=== PATIENT | female | born 1995 | race American Indian/Alaskan Native ===

== ENCOUNTER 2016-10-29 22:40 | Inpatient (IN) | payer MEDICAID ==
[2016-10-29] MEDS ORDERED: POLYCILLIN/NS 2 GM/100 ML 2 GM/100 ML BAG IV ONE (23:03)
[2016-10-29] MEDS ORDERED: LACTATED RINGERS 1,000 ML ONE (23:04)
[2016-10-29] MEDS ORDERED: PITOCin/NS 30 UNIT/500ML 30 UNITS/500 ML BAG IV SCH (23:45)
[2016-10-29] MEDS ORDERED: LACTATED RINGERS 1,000 ML IV SCH ×2 (23:45)
[2016-10-29] MEDS ORDERED: PITOCin/NS 20 UNIT/1000ML DRIP 20 UNITS/1,000 ML BAG IV SCH (23:45)
[2016-10-29 23:46] LABS: Basophils % (Auto) 0.5 % (0.0-1.8); Eosinophils % (Auto) 1.1 % (0.0-4.3); Hematocrit 33.1 % (30.3-42.9); Hemoglobin 10.6 gm/dl (10.1-14.3); Mean Corpuscular HGB Conc 32 % (30-34); Mean Corpuscular Hemoglobin 26 pg (28-32); Mean Corpuscular Volume 82 fl (79-97); Platelet Count 291 K/mm3 (140-440); Red Blood Count 4.02 M/mm3 (3.65-5.03); Red Cell Distribution Width 16.1 % (13.2-15.2); White Blood Count 11.8 K/mm3 (4.5-11.0)
[2016-10-29] MEDS ORDERED: SUBLIMAZE IV PRN (23:59)
[2016-10-29] MEDS ORDERED: ZOFRAN IV PRN (23:59)
[2016-10-29] MEDS ORDERED: BRETHINE SUB-Q PRN (23:59)
[2016-10-29] MEDS ORDERED: ePHEDrine SULFATE IV PRN (23:59)
[2016-10-29] MEDS ORDERED: MINERAL OIL PO PRN (23:59)
[2016-10-29] MEDS ORDERED: XYLOCAINE 2% INFILTRATI ONE (23:59)
[2016-10-30] MEDS ORDERED: BICITRA ONE (00:01)
[2016-10-30] MEDS ORDERED: REGLAN ONE (00:01)
[2016-10-30] MEDS ORDERED: PEPCID IV ONE ×2 (00:02→00:10)
[2016-10-30] MEDS ORDERED: ANCEF/STERILE WATER 2 GM/20 ML 2 GM/20 ML SYRINGE IV ONE (00:02)
[2016-10-30] MEDS ORDERED: BICITRA PO ONE (00:10)
[2016-10-30] MEDS ORDERED: REGLAN IV ONE (00:10)
[2016-10-30] MEDS ORDERED: ANCEF/STERILE WATER 2 GM/20 ML 2 GM/20 ML SYRINGE IV NR (00:15)
--- NOTE | 2016-10-30 00:24 | History and Physical Report ---
History of Present Illness Date of examination: 10/30/16 (pt presented to Triage with c/o contractions) Date of admission: 10/29/16 23:22 History of present illness: EDC Confirmation: 10/28/2016 Gestational Age: 6 6/7 weeks Past History : 0 Term Births: 0 Premature Births: 0 Living Children: 0 Para: 0 Mult. Births: 0 Prev : 0 Prev. attempt? 0 Aborta: 0 Elect. Ab: 0 Spont. 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 of genital herpes: yes Partner hx. of genital herpes: no Genetic History Congenital Heart Defect: Mom: no Dad: no Nataliia Disease: Mom: no Dad: no Thalassemia Mom: no Dad: no Neural Tube Defect Mom: no Dad: no Down's Syndrome Mom: no Dad: no Ari-Sachs Mom: no Dad: no Sickle Cell Disease/Trait Mom: yes Dad: no Comments: cousin Hemophilia Mom: no Dad: no Muscular Dystrophy Mom: no Dad: no Cystic Fibrosis Mom: no Dad: no Viola Chorea Mom: no Dad: no Mental Retardation Mom: no Dad: no Fragile X Mom: no Dad: no Other Genetic/Chromosomal Disorder Mom: no Dad: no Child w/other defect Mom: no Dad: no Enviromental Exposures Xray Exposure: no Medication, drug, or alcohol use since LMP: no Chemical/Other Exposure: no Exposure to Cat Liter: no Hx of Parvovirus (Fifth Disease): no Active Medications: FORMULA 27-1 MG ORAL TABS ( VIT-FE FUMARATE-FA) 1 po q day as directed PROMETHAZINE HCL 12.5 MG TABS (PROMETHAZINE HCL) 1 po q6 prn nausea Current Allergies (reviewed today): No known allergies Laboratory Results Routine Urinalysis Leukocytes: negative Nitrite: negative Urobilinogen: negative Protein: Negative Blood: negative Ketone: negative Bilirubin: negative Glucose: Negative Urine HCG: positive Review of Systems General Complains of fatigue. Denies fever, chills, sweats, anorexia, weakness, malaise, weight loss and sleep disorder. Denies vaginal discharge, incontinence, dysuria, hematuria, urinary frequency, amenorrhea, menorrhagia, abnormal vaginal bleeding, pelvic pain, genital sores, decreased libido, painful periods, painful sex, urinary urgency, hot flashes, vaginal dryness, vaginal itching and vaginal odor. CV Denies chest pains, palpitations, syncope, dyspnea on exertion, orthopnea, PND and peripheral edema. Resp Denies cough, dyspnea at rest, excessive sputum, hemoptysis, wheezing and pleurisy. GI Complains of nausea and vomiting. Denies diarrhea, constipation, change in bowel habits, abdominal pain, melena, hematochezia, jaundice, gas/bloating, indigestion/heartburn, dysphagia and odynophagia. Breast Complains of breast pain. Denies left breast lump, right breast lump, nipple discharge, bloody discharge from nipple, abnormal mammogram and breast enlargement. Psych Denies depression, anxiety, irritability and mood swings. PHYSICAL EXAM HEENT: normocephalic, no lesions or deformities Neck/Thyroid: supple, thyroid normal Skin no significant abnormal lesions or rashes Chest: respiratory effort normal, clear to auscultation Breasts: skin/areolae normal, no masses, no nipple discharge, no erythema/warmth /tenderness, and axillae normal. 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 Exams Vulva/Vagina: No lesions, normal BUS, normal rugae Cervix: No lesions; no cervical motion tenderness Uterus: normal size and position, midline, mobile Adnexae: no masses or tenderness Rectovaginal: exam defered Past History - Obstetrical History Expected Date of Delivery: 10/28/16 Actual Gestation: 40 Week(s) 2 Day(s) : 1 Para: 0 Number of Living Children: 0 Medications and Allergies Allergies Allergy/AdvReac Type Severity Reaction Status Date / Time amoxicillin trihydrate Allergy Unknown Verified 10/29/16 23:12 [From Augmentin] potassium clavulanate Allergy Unknown Verified 10/29/16 23:12 [From Augmentin] Active Meds: Active Medications Fentanyl (Sublimaze) 100 mcg IV Q2H PRN PRN Reason: Labor Pain Lactated Ringer's (Lactated Ringers) 1,000 mls @ 125 mls/hr IV DIRECT ANGEL Lactated Ringer's (Lactated Ringers) 1,000 mls @ 125 mls/hr IV DIRECT ANGEL Oxytocin/Sodium Chloride (Pitocin/Ns 20 Unit/1000ml Drip) 20 units in 1,000 mls @ 125 mls/hr IV DIRECT ANGEL Oxytocin/Sodium Chloride (Pitocin/Ns 30 Unit/500ml) 30 units in 500 mls @ 1 mls /hr IV TITR ANGEL; 1 MILLIUNITS/MIN PRN Reason: Protocol Lidocaine (Xylocaine 2%) 20 ml INFILTRATI ONCE ONE Stop: 10/30/16 00:00 Mineral Oil (Mineral Oil) 30 ml PO QHS PRN PRN Reason: Constipation Ondansetron HCl (Zofran) 4 mg IV Q8H PRN PRN Reason: Nausea And Vomiting Terbutaline Sulfate (Brethine) 0.25 mg SUB-Q ONCE PRN PRN Reason: Hyperstimulation/Hypertonicity Stop: 10/30/16 00:00 - Vital Signs Vital signs: Vital Signs Pulse BP 72 122/85 10/29/16 22:50 10/29/16 22:50 Temp Pulse Resp BP Pulse Ox 97.3 F L 91 H 18 122/85 99 10/29/16 23:59 10/30/16 00:07 10/29/16 23:59 10/29/16 22:50 10/30/16 00:07 - Physical Exam Breasts: Positive: deferred Cardiovascular: Regular rate, Normal S1, Normal S2 Abdomen: Positive: normal appearance, soft, normal bowel sounds. Negative: distention, tenderness Genitourinary (Female): Positive: normal external genitalia Vulva: both: normal Vagina: Positive: normal moisture. Negative: discharge Cervix: Negative: lesion, discharge Uterus: Positive: normal size, normal contour Adnexa: both: normal Anus/Rectum: Positive: normal perianal skin, heme negative. Negative: rectal mass, hemorrhoids Extremities: Positive: normal Deep Tendon Reflex Grade: Normal +2 - Obstetrical FHR: category 2 (deep variable decel noted on my arrival; AROM clear fluid ISE/ IUPC FHR stayed In the low 100s ) Uterine Contraction Monitor Mode: Internal Cervical Dilatation: 5 (AROM clear fluid) Cervical Effacement Percentage: 100 (ISE/IUPC) station: 0 Results Result Diagrams: 10/29/16 23:25 Abnormal lab results 10/29/16 Range/Units 23:25 WBC 11.8 H (4.5-11.0) K/mm3 MCH 26 L (28-32) pg RDW 16.1 H (13.2-15.2) % [place] % (Auto) 7.8 H (0.0-7.3) % [place] # 0.9 H (0.0-0.8) K/mm3 Seg Neutrophils # 8.0 H (1.8-7.7) K/mm3 All other labs normal. Assessment and Plan Unable to improve FHT with interventions O2 on via face mask called to be enroute. Explained to pt and family poss need for operative intervention/ section. They understand that the FHT is of concern and that mom is remote from delivery. tracing baseline 100s, marked variability with decels to the90s. Pt consented and prepped.
--- NOTE | 2016-10-30 00:54 | Event Note ---
Date: 10/30/16 ( here) Pt c/o urge to push SVE C,C,+2
--- NOTE | 2016-10-30 00:58 | Procedure Note ---
OB Delivery Note - Delivery Date of Delivery: 10/30/16 Surgeon: RACH LUKE Billboard Erector Helper: LINO SALINAS Estimated blood loss: 200cc - Vaginal Delivery presentation: vertex Delivery position: OA Intrapartum events: precipitous labor- <3hr, extend. bradycardia Delivery induction: none Delivery augmentation: rupture of membranes Delivery monitor: internal FHT, internal uterine Route of delivery: Delivery placenta: spontaneous (placenta inspected complete) Delivery cord: nuchal cord (reduced) Episiotomy: none Delivery laceration: none Anesthesia: none Delivery comments: live born female over intact perineum CAN X 1 reduced Baby to mom's abdomen Cord clamped and cut Cord blood obtained Placenta and membrane del complete and intact, 3 vessel cord. 8/9, EBL 200, Wgt 5-12 Pit IM Mom and baby remain LDR stable present for delivery - A at 1 minute: 8 at 5 minutes: 9 Gender: Female (wgt 5-12)
[2016-10-30] MEDS ORDERED: PITOCin/NS 20 UNIT/1000ML DRIP 20 UNITS/1,000 ML BAG IV SCH ×2 (01:00→02:53)
[2016-10-30] MEDS ORDERED: LACTATED RINGERS 1,000 ML IV SCH (01:00)
[2016-10-30] MEDS ORDERED: TORADOL IV PRN (02:53)
[2016-10-30] MEDS ORDERED: DERMOPLAST TP PRN (02:53)
[2016-10-30] MEDS ORDERED: DULCOLAX PR PRN (02:53)
[2016-10-30] MEDS ORDERED: METHERGINE IM PRN (02:53)
[2016-10-30] MEDS ORDERED: FLUARIX QUAD 2016-2017(36 MOS+) IM ONE (02:53)
[2016-10-30] MEDS ORDERED: SODIUM CHLORIDE FLUSH SYRINGE 10 ML IV PRN (02:53)
[2016-10-30] MEDS ORDERED: TYLENOL PO PRN (02:53)
[2016-10-30] MEDS ORDERED: TUCKS PAD TP PRN (02:53)
[2016-10-30] MEDS ORDERED: BOOSTRIX IM ONE (02:53)
[2016-10-30] MEDS ORDERED: PHENERGAN PO PRN (02:53)
[2016-10-30] MEDS ORDERED: PHENERGAN PR PRN (02:53)
[2016-10-30] MEDS ORDERED: PERCOCET 5/325 PO PRN (02:53)
[2016-10-30] MEDS ORDERED: CYTOTEC PR PRN (02:53)
[2016-10-30] MEDS ORDERED: BENADRYL PO PRN (02:53)
[2016-10-30] MEDS ORDERED: ZOFRAN IV PRN (02:53)
[2016-10-30] MEDS ORDERED: MILK OF MAGNESIA PO PRN (02:53)
[2016-10-30] MEDS ORDERED: HEMABATE IM PRN (02:53)
[2016-10-30] MEDS ORDERED: LANSINOH TP PRN (02:53)
[2016-10-30] MEDS: MOTRIN PO SCH ×4 (05:05→23:56)
[2016-10-30 14:29] LABS: Hematocrit 29.8 % (30.3-42.9); Hemoglobin 9.6 gm/dl (10.1-14.3)
[2016-10-31] MEDS: MOTRIN PO SCH (05:54)
[2016-10-31] MEDS ORDERED: BOOSTRIX IM ONE (06:00)
--- NOTE | 2016-10-31 08:35 | Discharge Summary ---
Providers - Providers Date of Admission: 10/29/16 23:22 Date of discharge: 10/31/16 (pt agrees with d/c ) Attending physician: RACH LUKE Primary care physician: RACH LUKE Hospitalization Reason for admission: active labor, IUP at term Delivery: Episiotomy: none Laceration: none Other procedures: none complications: none Discharge diagnosis: IUP at term delivered baby: female Hospital course: uncomplicated vaginal delivery Pt request d/c today No c/o voiced. Reviewed delivery with pt all questions addressed. VSS FF below umb Lochia small perineum intact. H&H 9.6/29.8 drop r/t blood loss from delivery Doing well s/p vag del. P: d/c today with instructions RTO 4 weeks PP care. RX provided. Condition at discharge: Good Disposition: DISCHARGED TO HOME OR SELFCARE - Discharge Diagnoses (1) Spontaneous vaginal delivery Status: Acute Comment: RTO 4 weeks Plan - Discharge Medications Prescriptions: Docusate Sodium [Colace] 100 mg PO BID PRN #60 capsule PRN Reason: Constipation Ferrous Sulfate [Feosol 325 MG tab] 325 mg PO BID #60 tablet Ibuprofen [Motrin 800 MG tab] 800 mg PO TID PRN #30 tablet PRN Reason: Pain - Provider Discharge Summary Activity: routine, no sex for 6 weeks, no heavy lifting 4 weeks, no strenuous exercise Diet: routine Instructions: routine Additional instructions: [] Smoking cessation referral if applicable(refer to patient education folder for contact #) [] Refer to [facility]'s [facility] Booklet Call your doctor immediately for: * Fever > 100.5 * Heavy vaginal bleeding ( >1 pad per hour) * Severe persistent headache * Shortness of breath * Reddened, hot, painful area to leg or breast * Drainage or odor from incision. * Keep incision clean and dry at all times and follow doctor's instructions regarding bathing/showering - Follow up plan Follow up: RACH LUKE MD [Primary Care Provider] - 11/30/16 (Congratulations! Please call [phone] to schedule your visit in 4 weeks. Take medications as prescribed. Call with concerns. )
[2016-10-31 08:37] VITALS: BP 114/66
[2016-10-31] MEDS ORDERED: FLUARIX QUAD 2016-2017(36 MOS+) IM ONE (12:00)
== END 2016-10-31 10:50 | disposition home or self-care (01) | DRG 775 ==
LOC: TRG 22:40 → LD 23:22 → OB 10-30 02:51
PROVIDERS: ADMIT Obstetrics & Gynecology; ATTEND Obstetrics & Gynecology
PROC: 10E0XZZ Delivery of Products of Conception, External Approach (ICD-10-PCS; principal; 2016-10-30)
DX: O76 Abnormality in fetal heart rate and rhythm complicating labor and delivery (principal); O69.81X0 Labor and delivery complicated by cord around neck, without compression, not applicable or unspecified; O62.3 Precipitate labor; Z3A.40 40 weeks gestation of pregnancy; Z37.0 Single live birth; Z88.8 Allergy status to other drugs, medicaments and biological substances; Z88.1 Allergy status to other antibiotic agents
CPT/HCPCS: 36415; 85014; 85018; 85025; 86850; 86900; 86901; 90471; 90686; 90715; 99211; A6250; G0463; J0690; J2590; J2765; J7120

== ENCOUNTER 2016-11-09 10:28 | Emergency (ER) | payer MEDICAID ==
--- NOTE | 2016-11-09 15:54 | Emergency Department Report ---
Upper Extremity - HPI Chief Complaint: Extremity Injury, Upper Stated Complaint: PUNTURE WOUND IN RT HAND Time Seen by Provider: 11/09/16 15:36 Upper Extremity: Right Middle Finger Occurred When: 1 Day Severity: moderate Symptoms: Yes Pain with Movement, Yes Limited Range of Movement, Yes Laceration or Abrasion, No Deformity Other History: 21-year-old female past medical history recent childbirth 9 days ago with female infant anxiety asthma presents with complaint of right finger laceration to middle finger. Patient is here with her states that they were moving a maddy piece of metal out of their basement together last night piece of metal slipped out of her hand and cut her middle right finger on palmar aspect. Finger range of motion and sensation fully intact visible laceration middle right finger with some abrasions on palmar aspect of hands. no other injuries sustained. Patient has finger covering gauze ED Review of Systems ROS: Stated complaint: PUNTURE WOUND IN RT HAND Other details as noted in HPI Constitutional: denies: chills, fever Eyes: denies: eye pain, eye discharge, vision change ENT: denies: ear pain, throat pain Respiratory: denies: cough, shortness of breath, wheezing Cardiovascular: denies: chest pain, palpitations Endocrine: no symptoms reported Gastrointestinal: denies: abdominal pain, nausea, diarrhea Genitourinary: denies: urgency, dysuria, discharge Musculoskeletal: denies: back pain, joint swelling, arthralgia Skin: denies: rash, lesions Neurological: denies: headache, weakness, paresthesias Psychiatric: denies: anxiety, depression Hematological/Lymphatic: denies: easy bleeding, easy bruising ED Past Medical Hx - Past Medical History Previous Medical History?: Yes Hx Hypertension: No Hx Congestive Heart Failure: No Hx Diabetes: No Hx Deep Vein Thrombosis: No Hx Renal Disease: No Hx Sickle Cell Disease: No Hx Seizures: No Hx Asthma: Yes (childhood) Hx COPD: No Hx HIV: No Additional medical history: Vaginal delivery 10-30-2016 - Surgical History Past Surgical History?: No - Social History Smoking Status: Former Smoker Substance Use Type: Alcohol - Medications Home Medications: Home Medications Medication Instructions Recorded Confirmed Last Taken Type Docusate Sodium [Colace] 100 mg PO BID PRN #60 capsule 10/31/16 Unknown Rx Ferrous Sulfate [Feosol 325 MG tab] 325 mg PO BID #60 tablet 10/31/16 Unknown Rx Ibuprofen [Motrin 800 MG tab] 800 mg PO TID PRN #30 tablet 10/31/16 Unknown Rx Acetaminophen [Acetaminophen TAB] 500 mg PO Q6HR PRN #25 tablet 11/09/16 Unknown Rx Cephalexin [Keflex] 500 mg PO Q12HR #10 cap 11/09/16 Unknown Rx Neomycn/Baci Zn/Pmyx Bs/Pramox 28 gm TP BID #1 oint...g. 11/09/16 Unknown Rx [Triple Antibioti-Pain Rlf Oint] Upper Extremity Exam - Exam General: Vital signs noted. No distress. Alert and acting appropriately. Head and Torso: No HEENT Abnormality, No Neck Tenderness, No Chest/Lungs Abnormality, No Abdominal Tenderness, No Back Tenderness Shoulder Exam: Yes Normal Range of Motion in Shoulder, No Shoulder Tenderness, No Clavicle Tenderness, No Shoulder Deformity, No AC Joint Tenderness Arm Exam: No Arm/Humerus Tenderness, No Arm Deformity Elbow: No Elbow Tenderness, No Normal Range of Motion in Elbow, No Elbow Deformity Forearm: No Forearm Tenderness, No Forearm Deformity, No Pain with Pronation, No Pain with Supination Wrist: Yes Normal ROM in Wrist, No Wrist Tenderness, No Wrist Deformity, No Snuffbox Tenderness, No Pain with Axial Thumb Compression Hand: Yes Normal ROM in Digit(s) (range of motion intact all fingers), No Hand Tenderness (no snuffbox tenderness on exam finger range of motion and range of motion fully intact), No Hand Deformity, No Digit Tenderness (pain right middle finger), No Digit(s) Deformity, No Tendon Dysfunction CMS Exam: Yes Normal Distal Pulses, Yes Normal Capillary Refill, Yes Normal Distal Sensation, No Broken Skin Hand L/R Front: 1 - Visible 2 cm laceration ED Course Vital Signs 11/09/16 11:28 Temperature 98.7 F Pulse Rate 67 Respiratory 18 Rate Blood Pressure 109/66 O2 Sat by Pulse 100 Oximetry - Laceration /Wound Repair Right Palm Finger Wound Location: upper extremity Wound Length (cm): 2 Wound's Depth, Shape: superficial Wound Explored: clean Irrigated w/ Saline (ccs): 1,000 Anesthesia: 1% Lidocaine Volume Anesthetic (ccs): 4 Wound Debrided: minimal Wound Repaired With: sutures Suture Size/Type: 4:0, proline Number of Sutures: 5 Layer Closure?: No Sterile Dressing Applied?: Yes (triple abx w/ gauze and finger splint) Progress: procedure tolerates well minimal bleeding, capillary refill and finger sensation and ROM flexion and extsion DIP, PIP and MCP fully intact against resistance. ED Medical Decision Making - Medical Decision Making a/p: finger laceration. 1- sutures placed, procedure tolerated well, 5 4-0 proline sutures closed wound. triple ab with gauze and finger splint placed overlying finger 2- tylenol prn as pt is currently . Keflex 500mg bid x 5days. cephalospron and penicilinn cross reactivity rates are very low and keflex should be safe, also safe w . giving abx as this was a dirty wound with rusted metal 3- sutures to be removed in 7-10 days, i advised pt to report back to the ED for any pus drainage, and finger redness/erythema. pt understood these instructions 4- tdap up to date as of 3.18.17 given in [facility] O[facility] service due to recent childbirth 5- no signs of neurovascular compromise in finger Critical care attestation.: If time is entered above; I have spent that time in minutes in the direct care of this critically ill patient, excluding procedure time. ED Disposition Clinical Impression: Abrasion Finger laceration Qualifiers: Encounter type: initial encounter Qualified Code(s): S61.219A - Laceration without foreign body of unspecified finger without damage to nail, initial encounter Disposition: DISCHARGED TO HOME OR SELFCARE Is pt being admited?: No Does the pt Need Aspirin: No Condition: Stable Instructions: Suture Care (ED), Laceration (ED) Additional Instructions: Patient to have sutures removed in the ED or urgent care in 7-10 days Prescriptions: Acetaminophen [Acetaminophen TAB] 500 mg PO Q6HR PRN #25 tablet PRN Reason: Pain Cephalexin [Keflex] 500 mg PO Q12HR #10 cap Neomycn/Baci Zn/Pmyx Bs/Pramox [Triple Antibioti-Pain Rlf Oint] 28 gm TP BID #1 oint...g. Forms: Accompanied Note, Work/School Release Form(ED) Time of Disposition: 18:37
[2016-11-09] MEDS ORDERED: TYLENOL PO ONE (15:55)
[2016-11-09] MEDS ORDERED: XYLOCAINE 1% 20 mL INFILTRATI ONE (15:55)
[2016-11-09] MEDS ORDERED: PROVENTIL IH ONE (17:09)
[2016-11-09 19:05] VITALS: BP 136/79
--- NOTE | 2016-11-10 08:05 | XRay Report ---
RIGHT FINGERS, 3 VIEWS History: Finger laceration, injury. Findings: Soft tissue lacerations involving digits 3 and 4 are identified. No acute osseous abnormality, joint pathology or radiopaque foreign body is detected. Impression: Soft tissue injury to digits 3 and 4.
== END 2016-11-09 19:04 | disposition home or self-care (01) ==
LOC: ED 10:28
DX: S61.212A Laceration without foreign body of right middle finger without damage to nail, initial encounter (principal); J45.909 Unspecified asthma, uncomplicated; Z87.891 Personal history of nicotine dependence; W45.8XXA Other foreign body or object entering through skin, initial encounter; Y93.89 Activity, other specified; Y99.8 Other external cause status; Y92.89 Other specified places as the place of occurrence of the external cause
CPT/HCPCS: 94640

== ENCOUNTER 2018-10-27 22:45 | Inpatient (IN) | payer MEDICAID ==
[2018-10-27] MEDS ORDERED: LACTATED RINGERS 1,000 ML ONE (23:43)
[2018-10-27] MEDS ORDERED: PITOCin/NS 20 UNIT/1000ML DRIP 20,000 MILLIUNITS/1,000 ML BAG IV ONE (23:44)
[2018-10-27] MEDS ORDERED: LACTATED RINGERS 1,000 ML IV SCH (23:45)
[2018-10-27] MEDS ORDERED: PITOCin/NS 20 UNIT/1000ML DRIP 20 UNITS/1,000 ML BAG IV SCH (23:45)
[2018-10-27] MEDS ORDERED: SUBLIMAZE IV PRN (23:58)
[2018-10-27] MEDS ORDERED: BRETHINE SUB-Q PRN (23:58)
[2018-10-27] MEDS ORDERED: BRETHINE IVP PRN (23:58)
[2018-10-27] MEDS ORDERED: NARCAN 0.4 MG/1 ML IV PRN (23:58)
[2018-10-27] MEDS ORDERED: ZOFRAN IV PRN (23:58)
[2018-10-27] MEDS ORDERED: XYLOCAINE 2% INFILTRATI ONE (23:58)
[2018-10-27] MEDS ORDERED: MINERAL OIL PO PRN (23:58)
--- NOTE | 2018-10-28 00:07 | History and Physical Report ---
History of Present Illness Date of examination: 10/28/18 Date of admission: 10/28/2018 Chief complaint: Intense labor pains History of present illness: 23yo AA Fe , NALINI 10/28/2018 (LMP) 40w 0d presents in active labor. 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 Pt has known HSV2 (valtrex suppression). History of precipitous delivery with first . Otherwise uncomplicated. records available. Labs: A Positive, Rubella Immune, VDRL Non-reactive, HIV Negative, varicella Immune, HBsAg Negative, GC/CL/Trich Negative, Quad positive (wrong dates), GBS Negative. 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 denies: abnormal PAP smear, chlamydia, gonorrhea, hepatitis B, hepatitis C, HIV, syphilis, trichomonas Family/Genetic History: cancer (Breast and bone cancer) Social history: no significant social history, single, full code. denies: lives with family, smoking, alcohol abuse, prescription drug abuse, IV drug use - Obstetrical History Expected Date of Delivery: 10/28/18 Actual Gestation: 40 Week(s) 0 Day(s) : 1 Para: 0 Hx # Term Pregnancies: 0 Number of Pregnancies: 0 Spontaneous Abortions: 0 Induced : 0 Number of Living Children: 0 #1 Gender: Female year: Birthweight: 3.175 kg Method of Delivery: Vaginal Gestational age at delivery: 40 Complications: none Medications and Allergies Allergies Allergy/AdvReac Type Severity Reaction Status Date / Time amoxicillin trihydrate Allergy Unknown Verified 10/29/16 23:12 [From Augmentin] potassium clavulanate Allergy Unknown Verified 10/29/16 23:12 [From Augmentin] Home Medications Medication Instructions Recorded Confirmed Last Taken Type Docusate Sodium [Colace] 100 mg PO BID PRN #60 capsule 10/31/16 Unknown Rx Ferrous Sulfate [Feosol 325 MG tab] 325 mg PO BID #60 tablet 10/31/16 Unknown Rx Ibuprofen [Motrin 800 MG tab] 800 mg PO TID PRN #30 tablet 10/31/16 Unknown Rx Acetaminophen [Acetaminophen TAB] 500 mg PO Q6HR PRN #25 tablet 11/09/16 Unknown Rx Neomycn/Bacitrc/Polymyx/Pramox 28 gm TP BID #1 oint...g. 11/09/16 Unknown Rx [Triple Antibioti-Pain Rlf Oint] cephALEXin [Keflex] 500 mg PO Q12HR #10 cap 11/09/16 Unknown Rx Review of Systems Eyes: normal appearance Cardiovascular: no chest pain, no shortness of breath Respiratory: no shortness of breath Breasts: normal Gastrointestinal: no abdominal pain, no nausea, no vomiting, no diarrhea Genitourinary: normal appearance, contractions, no vaginal bleeding, no vaginal discharge, no leakage of fluid, no genital sores Musculoskeletal: other (Denies) Integumentary: no rash, no sores, no lesions Neurological: other (Denies) Psychiatric: other (Denies) - Vital Signs Vital signs: Vital Signs Pulse BP 91 H 122/77 10/27/18 23:35 10/27/18 23:35 Temp Pulse Resp BP Pulse Ox 91 H 122/77 10/27/18 23:35 10/27/18 23:35 - Physical Exam Breasts: Positive: normal Cardiovascular: Regular rate, Normal S1, Normal S2, No murmurs Lungs: Positive: Clear to auscultation, Normal air movement Abdomen: Positive: normal appearance, soft, guarding. Negative: distention Genitourinary (Female): Positive: normal external genitalia, normal perenium Vulva: both: normal Vagina: Positive: normal moisture Uterus: Positive: enlarged (gravid) Anus/Rectum: Positive: normal perianal skin Extremities: Positive: normal Deep Tendon Reflex Grade: Normal +2 - Obstetrical FHR: category 1 Uterine Contraction Monitor Mode: External Cervical Dilatation: 8 (Per food products sales representative) Cervical Effacement Percentage: 90 station: +1 Uterine Contraction Frequency (min): 2-3 Uterine Contraction Duration: 60-90 Uterine Contraction Pattern: Regular Uterine Tone Measurement Phase: Resting Results All other labs normal. Assessment and Plan A: Term IUP at 40w0d GBS Negative Category 1 tracing Active labor P: Admit to L&D; routine labor orders Anticipate
[2018-10-28 00:14] LABS: Hematocrit 32.6 % (30.3-42.9); Hemoglobin 10.6 gm/dl (10.1-14.3); Mean Corpuscular HGB Conc 33 % (30-34); Mean Corpuscular Volume 87 fl (79-97); Platelet Count 331 K/mm3 (140-440); Red Blood Count 3.76 M/mm3 (3.65-5.03)
--- NOTE | 2018-10-28 00:59 | Procedure Note ---
OB Delivery Note - Delivery Date of Delivery: 10/28/18 Surgeon: JACQUELINE REDDY Estimated blood loss: 100cc - Vaginal Delivery presentation: vertex Delivery position: OA Intrapartum events: precipitous labor- <3hr Delivery induction: none Delivery augmentation: rupture of membranes Delivery monitor: external FHT, external uterine Route of delivery: Delivery placenta: spontaneous Delivery cord: 3 umbilical vessels Episiotomy: none Delivery laceration: none Anesthesia: none Delivery comments: delivered OA and placed on Mom's chest for [id number] bonding and delayed cord clamping, cut by Dad - Infant A at 1 minute: 8 at 5 minutes: 9 Gender: Female (3217gms)
[2018-10-28] MEDS ORDERED: PHENERGAN PR PRN (01:00)
[2018-10-28] MEDS ORDERED: DULCOLAX PR PRN (01:00)
[2018-10-28] MEDS ORDERED: NORCO 5/325 PO PRN (01:00)
[2018-10-28] MEDS ORDERED: SODIUM CHLORIDE FLUSH SYRINGE 10 ML IV PRN (01:00)
[2018-10-28] MEDS ORDERED: BENADRYL PO PRN (01:00)
[2018-10-28] MEDS ORDERED: TUCKS PAD TP PRN (01:00)
[2018-10-28] MEDS ORDERED: MILK OF MAGNESIA PO PRN (01:00)
[2018-10-28] MEDS ORDERED: PHENERGAN PO PRN (01:00)
[2018-10-28] MEDS ORDERED: ZOFRAN IV PRN (01:00)
[2018-10-28] MEDS ORDERED: LANSINOH TP PRN (01:00)
[2018-10-28] MEDS ORDERED: TYLENOL PO PRN (01:00)
[2018-10-28] MEDS ORDERED: PITOCin/NS 20 UNIT/1000ML DRIP 20 UNITS/1,000 ML BAG IV SCH (01:00)
[2018-10-28] MEDS: IBUPROFEN PO SCH ×3 (05:29→18:10)
[2018-10-28] MEDS: PRENATAL VITAMIN PO SCH (11:24)
[2018-10-28] MEDS: COLACE PO SCH ×2 (11:24→22:17)
[2018-10-28] MEDS: FEOSOL PO SCH ×2 (11:24→22:17)
[2018-10-28 14:26] LABS: Hematocrit 29.3 % (30.3-42.9); Hemoglobin 9.6 gm/dl (10.1-14.3)
[2018-10-29] MEDS: IBUPROFEN PO SCH ×3 (00:41→13:06)
[2018-10-29] MEDS ORDERED: M-M-R II VACCINE SUB-Q ONE (01:00)
[2018-10-29] MEDS ORDERED: BOOSTRIX IM ONE (06:00)
[2018-10-29] MEDS: FEOSOL PO SCH (13:07)
[2018-10-29] MEDS: PRENATAL VITAMIN PO SCH (13:07)
--- NOTE | 2018-10-29 15:36 | Progress Note ---
Assessment and Plan A: day 1 S/P spontaneous vaginal delivery. Anemia secondary to blood loss and . P: Discharge patient home. Discussed discharge instructions and warning signs in detail with patient. Advised patient to continue her vitamins and iron supplements at home. Advised patient to avoid intercourse, lifting and heavy housework, driving. Advised patient to follow up at [facility] in 6 weeks; advised patient to call office for appointment. Patient voiced understanding of all instructions. Subjective - Subjective Date of service: 10/29/18 Principal diagnosis: day 1 S/P spontaneous vaginal delivery Interval history: day 1 S/P spontaneous vaginal delivery. Patient is doing well and desires discharge today. Patient reports a small amount of lochia. Voiding without difficulty, ambulating well, tolerating a regular diet without nausea or vomiting. Patient denies headache, cough, shortness of breath, chest pain, leg pain, heavy bleeding, abdominal pain, dizziness, or any other symptoms. Patient reports: appetite normal, voiding normally, pain well controlled, flatus, ambulating normally, no dizzy ambulation, no nauseated : doing well Objective - Vital Signs Latest vital signs: Vital Signs Temp Pulse Resp BP BP Pulse Ox 10/29/18 08:00 98.2 F 73 16 108/68 98 10/29/18 05:02 18 10/29/18 00:00 98.6 F 82 18 105/59 Intake and Output 10/28/18 10/29/18 10/29/18 23:59 07:59 15:59 Intake Total 240 360 120 Output Total 500 2 Balance -260 358 120 Intake: Oral 120 Intake, Free Water 240 360 Output: Urine 500 2 Void 500 2 Other: Total, Intake Amount 120 Total, Output Amount 500 2 - Exam Cardiovascular: Present: Regular rate, Normal S1, Normal S2 Lungs: Present: Clear to auscultation Abdomen: Present: normal appearance, soft. Absent: distention, tenderness, guarding, rigidity Uterus: Present: normal, firm, fundal height below umbilicus. Absent: bogginess, tenderness Extremities: Present: normal. Absent: tenderness, edema
--- NOTE | 2018-10-29 15:38 | Discharge Summary ---
<ANH DURAN - Last Filed: 10/29/18 15:36> Providers - Providers Date of Admission: 10/27/18 23:58 Date of discharge: 10/29/18 Attending physician: JAYA VILLANUEVA MD Primary care physician: JAYA VILLANUEVA MD Hospitalization Reason for admission: active labor Delivery: Episiotomy: none Other procedures: none complications: none Discharge diagnosis: IUP at term delivered baby: female Pertinent studies: Labs Hospital course: Normal hospital course. Condition at discharge: Good Disposition: DC-01 TO HOME OR SELFCARE - Discharge Diagnoses (1) Term delivered Status: Acute (2) Anemia due to blood loss Status: Acute Plan - Provider Discharge Summary Activity: routine, no sex for 6 weeks, no heavy lifting 4 weeks, no strenuous exercise Diet: routine Instructions: routine Additional instructions: Continue your vitamins and iron supplements at home. Call your doctor immediately for: * Fever > 100.5 * Heavy vaginal bleeding ( >1 pad per hour) * Severe persistent headache * Shortness of breath * Reddened, hot, painful area to leg or breast - Follow up plan Follow up: JAYA VILLANUEVA MD [Primary Care Provider] - 6 Weeks Forms: [facility] Discharge Summary, Discharge Signature Page <MOHAMUD CHAND - Last Filed: 10/30/18 14:47> Providers - Providers Date of Admission: 10/27/18 23:58 Attending physician: JAYA VILLANUEVA MD Primary care physician: JAYA VILLANUEVA MD Hospitalization Pertinent studies: Laboratory Tests 10/27/18 10/27/18 10/27/18 23:52 23:52 23:52 WBC 12.6 H RBC 3.76 Hgb 10.6 Hct 32.6 MCV 87 MCH 28 MCHC 33 RDW 15.0 Plt Count 331 RPR Nonreactive Blood Type A POSITIVE Antibody Screen Negative 10/28/18 13:29 WBC RBC Hgb 9.6 L Hct 29.3 L MCV MCH MCHC RDW Plt Count RPR Blood Type Antibody Screen - Discharge Diagnoses (1) Anemia due to blood loss Status: Acute Comment: Asymptomatic. Discharge home to continue on supplemental iron. Plan - Provider Discharge Summary Additional instructions: [] Smoking cessation referral if applicable(refer to patient education folder for contact #) [] Refer to [facility] Booklet Call your doctor immediately for: * Fever > 100.5 * Heavy vaginal bleeding ( >1 pad per hour) * Severe persistent headache * Shortness of breath * Reddened, hot, painful area to leg or breast * Drainage or odor from incision. * Keep incision clean and dry at all times and follow doctor's instructions regarding bathing/showering
[2018-10-29 19:42] VITALS: BP 119/69
== END 2018-10-29 16:15 | disposition home or self-care (01) | DRG 775 ==
LOC: TRG 22:45 → LD 23:58 → TRG 23:58 → OB 10-28 02:26
PROVIDERS: ADMIT Obstetrics & Gynecology; ATTEND Obstetrics & Gynecology
PROC: 10E0XZZ Delivery of Products of Conception, External Approach (ICD-10-PCS; principal; 2018-10-28)
PROC: 3E0234Z Introduction of Serum, Toxoid and Vaccine into Muscle, Percutaneous Approach (ICD-10-PCS; 2018-10-29)
DX: O62.3 Precipitate labor (principal); O99.02 Anemia complicating childbirth; D62 Acute posthemorrhagic anemia; Z80.3 Family history of malignant neoplasm of breast; Z3A.40 40 weeks gestation of pregnancy; Z37.0 Single live birth; Z79.899 Other long term (current) drug therapy; Z88.1 Allergy status to other antibiotic agents; Z23 Encounter for immunization
CPT/HCPCS: 36415; 85014; 85018; 85027; 86592; 86850; 86900; 86901; 90471; 90715; G0378; J2590; J7120

== ENCOUNTER 2019-03-23 12:48 | Emergency (ER) | payer MEDICAID ==
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
[2019-03-23 13:13] VITALS: BP 121/56
== END 2019-03-23 13:15 | disposition left against medical advice (07) ==
LOC: ED 12:48
DX: R10.2 Pelvic and perineal pain (principal); Z53.21 Procedure and treatment not carried out due to patient leaving prior to being seen by health care provider